=== PATIENT | female | born 1955 | race American Indian/Alaskan Native ===

== ENCOUNTER 2017-04-09 16:05 | Emergency (ER) | payer SELFPAY ==
[2017-04-09 20:00] VITALS: BP 124/84
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
== END 2017-04-09 19:45 | disposition home or self-care (01) ==
LOC: ED 16:05
DX: S63.502A Unspecified sprain of left wrist, initial encounter (principal); J32.8 Other chronic sinusitis; X58.XXXA Exposure to other specified factors, initial encounter; Y93.89 Activity, other specified; Y92.89 Other specified places as the place of occurrence of the external cause; Y99.8 Other external cause status
CPT/HCPCS: 99282

== ENCOUNTER 2019-10-14 06:39 | Emergency (ER) | payer OTHER ==
[2019-10-14 06:54] VITALS: BP 142/81
--- NOTE | 2019-10-14 09:14 | Emergency Department Report ---
Chief Complaint: Back Pain/Injury Stated Complaint: PAIN SHOULDER AND UPPER BACK/SINUS Time Seen by Provider: 10/14/19 08:40 - HPI History of Present Illness: Patient is a 63-year-old female presents emergency room with complaints of left shoulder and left scapula pain that began 5 days ago. She denies any fall or injury. 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 she denies any numbness or weakness. She states that she has also had a couple li ght nosebleeds from the right naris and discomfort in the right ear. She states occasionally she has sinus issues. she has not been taking any medication for this. She denies any prior injuries. denies any past medical history or allergies medications. vitals are normal on exam: no acute distress, non toxic appearing normal appearance of the eyes, PERRL, EOMI pale turbinates, no purulence of the nares, no erythema, no dried blood, no active bleeding, no signs of bleeding no sinus TTP normal TMs and canals bilaterally, no signs of infection or effusion normal oropharynx, no uvular edema, no uvular deviation, no tonsillar hypertrophy or exudates no cervical LAD no TTP over the mastoid process bilaterally no midline or paraspinal C-spine tenderness to palpation, no step offs, no defor mities mild TTP over the left trapezius and left lastimus dorsi just below the scapula, no winging of the scapula no deformities pt has FROM of the BUE without difficulty, can raise the arms above the head, neurovascularly intact throughout, no deformities normal heart sounds, regular rate, rhythm normal breath sounds, no w/r/r Examination consistent with muscle strain No signs of sinusitis, otitis, effusion, mastoiditis Discussed symptomatic treatment and supportive care with patient Patient is presenting with a nonmedical emergency at this time medical screening examination performed and there is no threat to life or limb at this time She will be referred to a primary care physician - Exam Vital Signs: Vital Signs 10/14/19 06:51 Temperature 97.9 F Pulse Rate 69 Respiratory 12 Rate Blood Pressure 142/81 O2 Sat by Pulse 100 Oximetry MSE screening note: Focused history and physical exam performed. ED Disposition for MSE Clinical Impression: Right ear pain, Rhinorrhea, Epistaxis Strain of left trapezius muscle Qualifiers: Encounter type: initial encounter Qualified Code(s): S46.812A - Strain of other muscles, fascia and tendons at shoulder and upper arm level, left arm, initial encounter Strain of latissimus dorsi muscle Qualifiers: Encounter type: initial encounter Qualified Code(s): S29.012A - Strain of muscle and tendon of back wall of thorax, initial encounter Disposition: Z MED SCREENING EXAM-LEFT Is pt being admited?: No Does the pt Need Aspirin: No Condition: Stable Instructions: Muscle Strain (ED), Allergic Rhinitis (ED) Additional Instructions: Please take Tylenol or ibuprofen for your muscle strain. May also use Starkweather balm ointment. May use ice pack, heating pad, rest, epsom salt bath. please use Flonase nasal spray. Please also use Claritin or Zyrtec [id number]. increase your fluid intake. Follow up with a primary care doctor in the next 2- 3 days for reexamination. please follow up with an orthopedic doctor. Return to the emergency room for any new or worsening symptoms. Referrals: [facility] [Outside] - 2-3 Days [facility] [Outside] - 2-3 Days DANIEL HAQ MD [Staff Physician] - 2-3 Days MARY PIMENTEL MD [Staff Physician] - 2-3 Days [facility] [Provider Group] - 2-3 Days Forms: Work/School Release Form(ED) Time of Disposition: 09:15 Print Language: NEPALI
== END 2019-10-14 09:34 | disposition left against medical advice (07) ==
LOC: ED 06:39
DX: S46.812A Strain of other muscles, fascia and tendons at shoulder and upper arm level, left arm, initial encounter (principal); S29.012A Strain of muscle and tendon of back wall of thorax, initial encounter; H92.01 Otalgia, right ear; J34.89 Other specified disorders of nose and nasal sinuses; R04.0 Epistaxis; X50.0XXA Overexertion from strenuous movement or load, initial encounter; Y93.89 Activity, other specified; Y92.89 Other specified places as the place of occurrence of the external cause; Y99.8 Other external cause status